=== PATIENT | male | born 1975 | race Two or more races ===

== ENCOUNTER 2025-02-24 17:05 | Emergency (ER) | payer OTHER ==
[~2025-02-24] VITALS: Ht 188 cm; Wt 120.2 kg
[2025-02-24 17:47] LABS: PLATELET COUNT (AUTO) 273 K/uL (150-450); RED BLOOD CELL COUNT(AUTO) 5.22 MIL/uL (4.5-6.0); RED CELL DISTRIBUTION WIDTH 14.9 % (11.5-15.0); WHITE BLOOD COUNT (AUTO) 8.9 K/uL (4.3-11.0)
[2025-02-24 17:54] LABS: CALCIUM, SERUM 9.1 mg/dL (8.5-10.1); CREATININE 1.2 mg/dL (0.6-1.3); SODIUM SERUM 138.0 mmol/L (136-145); UREA NITROGEN, BLOOD 17.0 mg/dL (7-18)
[2025-02-24 18:02] LABS: ASPARTATE AMINOTRANSFERASE 25.0 U/L (15-37); TOTAL PROTEIN, SERUM 8.1 g/dL (6.4-8.2)
[2025-02-24] MEDS ORDERED: DICYCLOMINE HCL 10 MG CAPSULE PO ONE (18:44)
[2025-02-24] MEDS: DICYCLOMINE HCL 10 MG CAPSULE PO ONE (18:45)
[2025-02-24] MEDS ORDERED: DICY10CA37 PO (19:06)
[2025-02-24 19:14] VITALS: BP 130/80; TEMP 98.6; O2SAT 98
== END 2025-02-24 19:14 | disposition home or self-care (01) ==
LOC: ER 17:26
DX: K52.9 Noninfective gastroenteritis and colitis, unspecified (principal); F17.200 Nicotine dependence, unspecified, uncomplicated; R11.0 Nausea
CPT/HCPCS: 36415; 80048-TC; 80076-TC; 83690-TC; 85025-TC